=== PATIENT | female | born 1980 | race Caucasian/White ===

== ENCOUNTER 2017-09-05 19:00 | Inpatient (IN) | payer OTHER ==
[2017-09-05] MEDS: DEXTROSE 5%-LACTATED RINGERS 1,000 ML IV SCH (19:45)
[2017-09-05] MEDS ORDERED: DINOPROSTONE 10 MG VAGINAL SUPPOSITORY VG ONE (21:00)
[2017-09-05] MEDS ORDERED: BUTORPHANOL TARTRATE 1 MG/ML VIAL IVPB ONE (21:14)
[2017-09-05] MEDS ORDERED: PROMETHAZINE HCL 25 MG/1 ML VIAL IVPUSH ONE (21:14)
--- NOTE | 2017-09-05 21:21 | HP ---
Past Medical History - Primary Care Physician PCP:: Sarahi Avilez - Admission Chief Complaint: 37yo P0 @ 38.5 wks with generalized edema, significant proteinuria History of Present Illness: 1. Rh negative - s/p Rhogam 2. IVF , donor egg 3. AMA - Materna 21 wnl 4. h/o Hodgkins Lymphoma - s/p Chemo 5. GBS negative 6. Tdap given 7. Anemia 8. Migranes History Source: Patient Limitations to Obtaining History: No Limitations - Past Medical History CLEANING MAID: Yes: Migraine ...: 2 ...Para: 0 ...Spon : 1 ... Weeks Gestation by Dates: 38.5 ...EDC by Sono: 05/02/17 Heme/Onc: Yes: Anemia, Other (Non Hodgkins Lymphoma, s/p Chemo) - Past Surgical History Past Surgical History: Yes: None Hx Myomectomy: No Hx Transabdominal Cerclage: No - Smoking History Smoking history: Never smoked Have you smoked in the past 12 months: No Home Medications - Allergies Allergies/Adverse Reactions: Allergies Allergy/AdvReac Type Severity Reaction Status Date / Time Gadolinium-Containing AdvReac Intermediate Swelling Verified 09/05/17 20:45 Contrast Medi - Home Medications Home Medications: Ambulatory Orders Esomeprazole Magnesium [Nexium 24Hr] 20 mg PO DAILY 09/05/17 Ferrous Sulfate [Iron] 325 mg PO DAILY 09/05/17 95/Iron Fum/Folic/Dha [ + Dha Combo Pack] 1 each PO DAILY 09/05 Family Disease History - Family Disease History Family Disease History: Other: Mother (Acute myeloid leukemia) Review of Systems - Review of Systems Constitutional: reports: No Symptoms Eyes: reports: No Symptoms HENT: reports: No Symptoms Neck: reports: No Symptoms Cardiovascular: reports: No Symptoms Respiratory: reports: No Symptoms Gastrointestinal: reports: No Symptoms Genitourinary: reports: No Symptoms Breasts: reports: No Symptoms Reported Musculoskeletal: reports: No Symptoms Integumentary: reports: No Symptoms Neurological: reports: No Symptoms Endocrine: reports: No Symptoms Hematology/Lymphatic: reports: No Symptoms Psychiatric: reports: No Symptoms Pain Intensity: 0 Physical Exam - Maternity Constitutional: Yes: Well Nourished, No Distress, Calm Eyes: Yes: WNL, Conjunctiva Clear, EOM Intact HENT: Yes: WNL, Atraumatic, Normocephalic Neck: Yes: WNL, Supple, Trachea Midline Cardiovascular: Yes: WNL, Regular Rate and Rhythm Lungs: Clear to auscultation Breast(s): Yes: WNL - Abdominal Exam/OB Fundal Height: 38 Number of Fetuses: Single Presentation: Vertex Contractions: No Heart Rate (range): 145 Heart Rate Location: Midline Category: I Accelerations: Uniform Decelerations: None - Vaginal Exam/OB Vaginal Bleediing: No Speculum Exam: No Dilatation (cm): 2 Effacement (%): 50 Amniotic Membrane Status: Intact Presentation: Vertex/Position Station: -2 - Physical Exam Musculoskeletal: Yes: WNL Extremities: Yes: WNL Edema: Yes Edema: LUE: Trace, RUE: Trace, LLE: 1+, RLE: 1+ Integumentary: Yes: WNL ...Motor Strength: WNL Psychiatric: Yes: WNL, Alert, Oriented Assessment/Plan 37yo P0 @ 38.5wks with edema, CHANEY, Proteinuria Admit to L&D for IOL Case d/w Dr. Dawson [facility]
[2017-09-05 21:49] LABS: BASO % 0.1 % (0-2.0); EOS % 0.2 % (0-4.5); HEMATOCRIT 34.6 % (32.4-45.2); HEMOGLOBIN 11.5 GM/dL (10.7-15.3); LYMPH % 16.8 % (8-40); MCH 31.2 pg (25.7-33.7); MCHC 33.3 g/dl (32.0-36.0); MEAN CELL VOLUME 93.7 fl (80-96); MEAN PLT VOLUME 9.8 fl (7.5-11.1); MONO % 7.7 % (3.8-10.2); NEUT % 75.2 % (42.8-82.8); PLATELET COUNT 191 K/MM3 (134-434); RBC 3.69 M/mm3 (3.60-5.2); RDW 14.8 % (11.6-15.6); WHITE BLOOD COUNT 10.2 K/mm3 (4.0-10.0)
[2017-09-05 21:51] LABS: RETICULOCYTES 1.9 % (0.5-1.5)
[2017-09-05 22:02] LABS: INR 0.89 (0.82-1.09); PROTHROMBIN TIME (PATIENT) 10.1 SEC (9.7-13.0)
[2017-09-05 22:15] LABS: ANION GAP 9 (8-16); BLOOD UREA NITROGEN 8 mg/dL (7-18); CALCIUM 8.5 mg/dL (8.5-10.1); CHLORIDE 107 mmol/L (98-107); CO2 25 mmol/L (21-32); CREATININE 0.6 mg/dL (0.55-1.02); GLUCOSE,RANDOM 68 mg/dL (74-106); POTASSIUM 3.8 mmol/L (3.5-5.1); SGOT/AST 18 U/L (15-37); SODIUM 141 mmol/L (136-145); URIC ACID 3.7 mg/dL (2.6-7.2)
[2017-09-05 22:25] LABS: GAMMA GLUTAMYL TRANSPEPTIDASE < 3 U/L (5-85)
[2017-09-06 00:29] VITALS: BMI 28.4
[2017-09-06] MEDS: ELECTROLYTE-148 SOLN 1,000 ML IV SCH ×2 (06:40→23:30)
--- NOTE | 2017-09-06 10:54 | PN ---
Progress Note, Labor Vaginal Exam #1 Labor Exam Date: 09/06/17 Labor Exam Time: 10:45 Heart Rate (range): 145 Dilatation: 2 Effacement (%): 75 Amniotic Membrane Status: Intact Presentation: Vertex/Position Station: -3
[2017-09-06] MEDS ORDERED: OXYTOCIN 30 UNITS in 0.9% NS 30 UNIT/500 ML INFUS.BAG IVPB ONE ×2 (10:56→23:31)
[2017-09-06] MEDS ORDERED: OXYTOCIN 30 UNITS in 0.9% NS 30 UNIT/500 ML INFUS.BAG IVPB SCH (11:00)
[2017-09-06] MEDS ORDERED: PROMETHAZINE HCL 25 MG/1 ML VIAL IVPB ONE (11:30)
[2017-09-06] MEDS ORDERED: BUTORPHANOL TARTRATE 1 MG/ML VIAL IVPB ONE (11:30)
[2017-09-06] MEDS: DEXTROSE 5%-LACTATED RINGERS 1,000 ML IV SCH (11:44)
[2017-09-06] MEDS ORDERED: TUBERCULIN PPD 5 TU/0.1ML SYRINGE (IN PATIENT USE ONLY) ID ONE (12:00)
[2017-09-06] MEDS ORDERED: BUTORPHANOL TARTRATE 1 MG/ML VIAL ONE ×2 (15:05)
[2017-09-06] MEDS ORDERED: PROMETHAZINE HCL 25 MG/1 ML VIAL ONE (15:06)
[2017-09-06] MEDS ORDERED: FENTANYL/BUPIVACAINE/NS/PF - PCEA - 50 ML DISP.SYRIN EP ONE (23:37)
[2017-09-07] MEDS: FENTANYL/BUPIVACAINE/NS/PF - PCEA - 50 ML DISP.SYRIN EP SCH ×2 (00:05→00:50)
[2017-09-07] MEDS ORDERED: NALOXONE HCL 0.4 MG/ML VIAL IVPUSH PRN (00:21)
[2017-09-07] MEDS: DEXTROSE 5%-LACTATED RINGERS 1,000 ML IV SCH (01:45)
[2017-09-07] MEDS ORDERED: FENTANYL/BUPIVACAINE/NS/PF - PCEA - 50 ML DISP.SYRIN EP ONE (02:57)
[2017-09-07] MEDS ORDERED: ACETAMINOPHEN 325 MG TABLET (FP) ONE (03:21)
[2017-09-07] MEDS ORDERED: AMPICILLIN NA/SULBACTAM NA 1.5 GM in SODIUM CHLORIDE 100 ML IVPB SCH (03:30)
[2017-09-07] MEDS ORDERED: ACETAMINOPHEN 325 MG TABLET (FP) PO ONE (03:30)
[2017-09-07] MEDS ORDERED: ACETAMINOPHEN INJECTION 100 ML IVPB ONE (04:36)
[2017-09-07] MEDS ORDERED: LIDOCAINE HCL 1% PRESERVATIVE FREE - 30ML VIAL ONE (04:39)
[2017-09-07] MEDS ORDERED: OXYTOCIN 20 UNITS in 0.9% NS 20 UNIT/1,000 ML INFUS.BAG IV ONE ×2 (04:40→07:04)
--- NOTE | 2017-09-07 06:52 | PN ---
Delivery - Delivery Vaginal Delivery: Vacuum Extraction Type of Anesthesia: Local, Epidural Episiotomy/Laceration: Midline, 2nd degree EBL (cc): 500 Delivery, Single - Stages of Labor Date 1st Stage Initiatied: 09/06/17 Time 1st Stage Initiated: 16:00 Date 2nd Stage Initiated: 09/07/17 Time 2nd Stage Initiated: 04:40 Date of Delivery: 09/07/17 Time of Delivery: 05:47 Time Placenta Delivered: 06:05 - Condition of Motion Designer/Wellness Manager Present: Yes Name: Immanuel Kent Infant Gender: Male Weight: 8 lb 13 oz Position: OA Total Hours ROM (Hrs/Mins): 6h 50m - 1 Minute Total Score: 9 5 Minutes Total Score: 9 - Feeding Plan Initial Plan: Exclusive throughout hospitalization Remarks - Remarks Remarks: Poor maternal effort No caput no molding head was at +2 station Vaccuum applied to the occiput total of 2 applications, 1 pop off shoulders delivered without difficulty Awaiting pediatritians in the room
[2017-09-07] MEDS ORDERED: BENZOCAINE 28 GM HEMORRHOIDAL OINTMENT TP PRN (06:57)
[2017-09-07] MEDS ORDERED: BENZOCAINE 20% 57 GM BOTTLE TP PRN (06:57)
[2017-09-07] MEDS ORDERED: METHYLERGONOVINE MALEATE 0.2 MG/1 ML AMP IM PRN (06:57)
[2017-09-07] MEDS ORDERED: WITCH HAZEL 50% (TUCKS) 40 PAD/JAR PAD TP PRN (06:57)
[2017-09-07] MEDS ORDERED: BISACODYL 10 MG SUPP.RECT RC PRN (06:57)
[2017-09-07] MEDS ORDERED: D5W-LR W/ 20 UNITS OXYTOCIN 20 UNIT/1,000 ML INFUS.BAG IV SCH (07:00)
[2017-09-07] MEDS: IBUPROFEN 600 MG TABLET (FP) PO PRN ×4 (07:00→21:29)
[2017-09-07] MEDS: AMPICILLIN NA/SULBACTAM NA 1.5 GM in SODIUM CHLORIDE 100 ML IVPB SCH ×3 (09:13→21:32)
[2017-09-07] MEDS: PRENATAL VITAMINS W/ FOLIC ACID TABLET (FP) PO SCH (10:12)
[2017-09-07] MEDS: FERROUS SO4 325 MG TABLET (FP) PO SCH ×2 (10:12→18:08)
[2017-09-07] MEDS: ACETAMINOPHEN 325 MG TABLET (FP) PO PRN ×3 (10:13→21:29)
[2017-09-07] MEDS ORDERED: LIDOCAINE HCL 2% JELLY (5 ML/TUBE) TP PRN (12:21)
[2017-09-07] MEDS: PANTOPRAZOLE 40 MG TABLET (FP) PO SCH (13:41)
--- NOTE | 2017-09-08 00:48 | PN ---
Post Progress Note - Subjective Subjective: Patient without acute complaints. Reports tolerating oral intake without nausea or vomiting. Ambulating without dizziness. Denies fevers or chills. Pain well controlled with oral pain medication. without difficulty. Passing flatus. Post Day: 1 Type of Delivery: Vacuum Assist Vag Del Vital Signs: Vital Signs Temperature 98.7 F 09/07/17 22:00 Pulse Rate 75 09/07/17 22:00 Respiratory Rate 18 09/07/17 22:00 Blood Pressure 124/78 09/07/17 22:00 O2 Sat by Pulse Oximetry (%) 99 09/07/17 08:20 Breast Exam: Yes: Soft Uterus: Yes: Fundus Firm, Fundus below umbilicus Abdomen/GI: Yes: Abdomen soft Lochia, amount: Small Extremities: No: Edema Activity: Ambulating - Labs Labs: CBC WBC 10.2 K/mm3 (4.0-10.0) H 09/05/17 21:00 RBC 3.69 M/mm3 (3.60-5.2) 09/05/17 21:00 Hgb 11.5 GM/dL (10.7-15.3) 09/05/17 21:00 Hct 34.6 % (32.4-45.2) 09/05/17 21:00 MCV 93.7 fl (80-96) 09/05/17 21:00 MCH 31.2 pg (25.7-33.7) 09/05/17 21:00 MCHC 33.3 g/dl (32.0-36.0) 09/05/17 21:00 RDW 14.8 % (11.6-15.6) 09/05/17 21:00 Plt Count 193 K/MM3 (134-434) 09/05/17 21:00 MPV 9.8 fl (7.5-11.1) 09/05/17 21:00 Absolute Neuts (auto) 7.6 # 09/05/17 21:00 Neutrophils % 75.2 % (42.8-82.8) 09/05/17 21:00 Lymphocytes % 16.8 % (8-40) 09/05/17 21:00 Monocytes % 7.7 % (3.8-10.2) 09/05/17 21:00 Eosinophils % 0.2 % (0-4.5) 09/05/17 21:00 Basophils % 0.1 % (0-2.0) 09/05/17 21:00 Nucleated RBC % 0 % (0-0) 09/05/17 21:00 Retic Count 1.90 % (0.5-1.5) H 09/05/17 21:00 Haptoglobin 93 mg/dL (34-200) 09/05/17 21:00 Assessment/Plan 37 yo PPD # 1 s/p VAVD, afebrile, vital signs stable, doing well 1. Continue routine care. 2. Follow up AM CBC 3. Rh negative, Rhogam as per protocol. 4. Encourage ambulation 5. Continue oral pain medication 6. Anticipate discharge home day #2
[2017-09-08] MEDS: IBUPROFEN 600 MG TABLET (FP) PO PRN ×3 (02:49→21:44)
[2017-09-08] MEDS: ACETAMINOPHEN 325 MG TABLET (FP) PO PRN ×3 (02:49→21:43)
[2017-09-08] MEDS: AMPICILLIN NA/SULBACTAM NA 1.5 GM in SODIUM CHLORIDE 100 ML IVPB SCH (02:49)
[2017-09-08] MEDS: FENTANYL/BUPIVACAINE/NS/PF - PCEA - 50 ML DISP.SYRIN EP SCH (04:09)
[2017-09-08 08:11] LABS: BASO % 0.1 % (0-2.0); HEMATOCRIT 24.8 % (32.4-45.2); HEMOGLOBIN 8.3 GM/dL (10.7-15.3); LYMPH % 16.7 % (8-40); MCH 31.6 pg (25.7-33.7); MCHC 33.6 g/dl (32.0-36.0); MEAN CELL VOLUME 93.9 fl (80-96); MEAN PLT VOLUME 9.6 fl (7.5-11.1); MONO % 6.1 % (3.8-10.2); NEUT % 76.1 % (42.8-82.8); PLATELET COUNT 141 K/MM3 (134-434); RBC 2.64 M/mm3 (3.60-5.2); WHITE BLOOD COUNT 12.3 K/mm3 (4.0-10.0)
[2017-09-08] MEDS: FERROUS SO4 325 MG TABLET (FP) PO SCH ×3 (08:16→17:49)
[2017-09-08] MEDS: DOCUSATE SODIUM 100 MG CAPSULE (FP) PO PRN ×2 (09:55→21:42)
[2017-09-08] MEDS: PRENATAL VITAMINS W/ FOLIC ACID TABLET (FP) PO SCH (09:56)
[2017-09-08] MEDS: PANTOPRAZOLE 40 MG TABLET (FP) PO SCH (09:56)
[2017-09-08] MEDS ORDERED: SENNOSIDES/DOCUSATE COMBO (SENNA PLUS) TABLET (UD) PO PRN (22:00)
--- NOTE | 2017-09-09 08:34 | DS ---
Physical Exam-RAILROAD REPAIRER Vital Signs: Vital Signs Temperature 97.9 F 09/08/17 21:49 Pulse Rate 102 H 09/08/17 21:49 Respiratory Rate 20 09/08/17 21:49 Blood Pressure 129/80 09/08/17 21:49 O2 Sat by Pulse Oximetry (%) 99 09/07/17 08:20 Constitutional: Yes: Well Nourished, No Distress, Calm Eyes: Yes: WNL, Conjunctiva Clear, EOM Intact HENT: Yes: WNL, Atraumatic, Normocephalic Neck: Yes: WNL, Supple, Trachea Midline Cardiovascular: Yes: WNL, Regular Rate and Rhythm Respiratory: Yes: WNL, Regular, CTA Bilaterally Gastrointestinal: Yes: WNL ...Rectal Exam: Yes: WNL Renal/: Yes: WNL External Genitalia: Yes: Normal ....Post : Yes: Uterus firm, Uterus non-tender, Slight lochia rubra Breast(s): Yes: WNL Musculoskeletal: Yes: WNL Extremities: Yes: WNL Edema: No Integumentary: Yes: WNL Neurological: Yes: WNL, Alert, Oriented ...Motor Strength: WNL Psychiatric: Yes: WNL, Alert, Oriented Labs: CBC, BMP 09/08/17 06:15 09/05/17 21:00 Delivery - Delivery Vaginal Delivery: Vacuum Extraction Type of Anesthesia: Local, Epidural Episiotomy/Laceration: Midline, 2nd degree EBL (cc): 500 Delivery, Single - Stages of Labor Date 1st Stage Initiatied: 09/06/17 Time 1st Stage Initiated: 16:00 Date 2nd Stage Initiated: 09/07/17 Time 2nd Stage Initiated: 04:40 Date of Delivery: 09/07/17 Time of Delivery: 05:47 Time Placenta Delivered: 06:05 Placenta: Yes: Spontaneous - Condition of Billet Worker/Single Ending Machine Operator Present: Yes Name: Immanuel Kent Infant Gender: Male Weight: 8 lb 13 oz Position: OA Total Hours ROM (Hrs/Mins): 6h 50m - 1 Minute Total Score: 9 5 Minutes Total Score: 9 - [place] Feeding Plan Initial Plan: Exclusive throughout hospitalization Discharge Summary Reason For Visit: LABOR ADMIT Procedures: Principal: vaccum assiated vaginal delivery Hospital Course: no complication - Instructions Diet, Activity, Other Instructions: regular diet, no intercourse, follow up office 4 weeks - Home Medications Comprehensive Discharge Medication List: Ambulatory Orders Esomeprazole Magnesium [Nexium 24Hr] 20 mg PO DAILY 09/05/17 Ferrous Sulfate [Iron] 325 mg PO DAILY 09/05/17 95/Iron Fum/Folic/Dha [ + Dha Combo Pack] 1 each PO DAILY 09/05 Ibuprofen [Motrin -] 600 mg PO QID #28 tablet 09/09/17
[2017-09-09] MEDS: FERROUS SO4 325 MG TABLET (FP) PO SCH (10:23)
[2017-09-09] MEDS: PRENATAL VITAMINS W/ FOLIC ACID TABLET (FP) PO SCH (10:23)
[2017-09-09 11:06] VITALS: BP 149/88; PULSE 109; TEMP 98
[2017-09-09] MEDS: PANTOPRAZOLE 40 MG TABLET (FP) PO SCH (11:36)
== END 2017-09-09 14:00 | disposition home or self-care (01) | DRG 775 ==
LOC: JDEL 19:00 → JLDR 19:01 → EDLOC 19:01 → UNDOADMIN 19:01 → J3W 09-07 08:25
PROVIDERS: ADMIT Obstetrics & Gynecology; ATTEND Obstetrics & Gynecology
PROC: 0KQM0ZZ Repair Perineum Muscle, Open Approach (ICD-10-PCS; principal; 2017-09-07)
PROC: 10D07Z6 Extraction of Products of Conception, Vacuum, Via Natural or Artificial Opening (ICD-10-PCS; 2017-09-07)
PROC: 10E0XZZ Delivery of Products of Conception, External Approach (ICD-10-PCS; 2017-09-07)
DX: O70.1 Second degree perineal laceration during delivery (principal); Z37.0 Single live birth; O99.02 Anemia complicating childbirth; G43.909 Migraine, unspecified, not intractable, without status migrainosus; O66.5 Attempted application of vacuum extractor and forceps; Z3A.38 38 weeks gestation of pregnancy; Z85.72 Personal history of non-Hodgkin lymphomas
CPT/HCPCS: 36415; 59409; 80048; 82977; 83010; 84450; 84460; 84550; 85025; 85032; 85044; 85461; 85610; 85730; 86593; 86850; 86870; 86900; 86901; 86902; 86999; J0131

== ENCOUNTER 2020-04-08 08:49 | Inpatient (IN) | payer OTHER ==
[2020-04-08 10:34] VITALS: BMI 26.6
[2020-04-08] MEDS: DEXTROSE 5%-LACTATED RINGERS 1,000 ML IV SCH ×2 (11:00→22:26)
[2020-04-08] MEDS ORDERED: ELECTROLYTE-148 SOLN 1,000 ML IV SCH (11:45)
[2020-04-08] MEDS ORDERED: PROMETHAZINE HCL 25 MG/1 ML VIAL IVPB ONE (11:45)
[2020-04-08] MEDS ORDERED: BUTORPHANOL TARTRATE 2 MG/ML VIAL IVPB ONE (11:45)
[2020-04-08] MEDS ORDERED: OXYTOCIN 30 UNITS in 0.9% NS 30 UNIT/500 ML INFUS.BAG IVPB SCH (12:00)
[2020-04-08] MEDS ORDERED: PCA PUMP NR ONE (15:15)
[2020-04-08] MEDS ORDERED: FENTANYL/BUPIVACAINE/NS/PF - PCEA - 50 ML DISP.SYRIN EP ONE ×2 (15:15→19:30)
[2020-04-08] MEDS ORDERED: BUPIVACAINE HCL/PF 0.25% (2.5MG/ML) 10 ML VIAL ONE (15:27)
[2020-04-08] MEDS ORDERED: NALOXONE HCL 0.4 MG/ML VIAL IVPUSH PRN (15:31)
[2020-04-08] MEDS ORDERED: FENTANYL/BUPIVACAINE/NS/PF - PCEA - 50 ML DISP.SYRIN EP SCH (15:45)
[2020-04-08] MEDS ORDERED: OXYTOCIN 20 UNITS in 0.9% NS 20 UNIT/1,000 ML INFUS.BAG IV ONE (17:42)
[2020-04-08] MEDS ORDERED: ACETAMINOPHEN INJECTION 100 ML IVPB ONE (18:40)
[2020-04-08 19:02] LABS: CORD BASE EXCESS -8.9 mmol/L (0-2); CORD HCO3 18.7 mmHg (20-29); CORD PCO2 46.2 mmHg (30-78); CORD pH 7.225 (7.14-7.44)
[2020-04-08] MEDS ORDERED: WITCH HAZEL 50% (TUCKS) 40 PAD/JAR PAD TP PRN (20:00)
[2020-04-08] MEDS ORDERED: BISACODYL 10 MG SUPP.RECT RC PRN (20:00)
[2020-04-08] MEDS ORDERED: BENZOCAINE 20% 57 GM BOTTLE TP PRN (20:00)
[2020-04-08] MEDS ORDERED: ACETAMINOPHEN 325 MG TABLET (FP) PO PRN (20:00)
[2020-04-08] MEDS ORDERED: D5W-LR W/ 20 UNITS OXYTOCIN 1,000 ML IV SCH (20:00)
[2020-04-08] MEDS ORDERED: BENZOCAINE 28 GM HEMORRHOIDAL OINTMENT TP PRN (20:00)
[2020-04-08] MEDS ORDERED: METHYLERGONOVINE MALEATE 0.2 MG/1 ML AMP IM PRN (20:00)
[2020-04-08] MEDS ORDERED: ACETAMINOPHEN 1000 MG/100 ML VIAL (NON FORMULARY) IVPB ONE (20:02)
[2020-04-08] MEDS ORDERED: OXYTOCIN 20 UNITS in 0.9% NS 20 UNIT/1,000 ML INFUS.BAG IV SCH (20:15)
[2020-04-08] MEDS ORDERED: IBUPROFEN 600 MG TABLET (FP) PO ONE (20:20)
[2020-04-08] MEDS ORDERED: CEFAZOLIN 2 GM/D5W 2 GM/50 ML ML IVPB ONE (20:20)
[2020-04-08] MEDS ORDERED: CEFAZOLIN 1 GM/D5W 1 GM/50 ML BAG IVPB ONE (20:30)
[2020-04-08] MEDS: IBUPROFEN 600 MG TABLET (FP) PO PRN (20:40)
[2020-04-09 08:59] LABS: BASO % 0.1 % (0-2.0); EOS % 0.4 % (0-4.5); HEMATOCRIT 28.3 % (32.4-45.2); HEMOGLOBIN 9.2 GM/dL (10.7-15.3); LYMPH % 10.1 % (8-40); MCH 28.8 pg (25.7-33.7); MCHC 32.7 g/dl (32.0-36.0); MEAN CELL VOLUME 87.9 fl (80-96); MEAN PLT VOLUME 9.5 fl (7.5-11.1); MONO % 5.7 % (3.8-10.2); NEUT % 83.7 % (42.8-82.8); PLATELET COUNT 146 K/MM3 (134-434); RBC 3.21 M/mm3 (3.60-5.2); RDW 17.6 % (11.6-15.6); WHITE BLOOD COUNT 12.9 K/mm3 (4.0-10.0)
[2020-04-09] MEDS: FERROUS SO4 325 MG TABLET (FP) PO SCH ×2 (09:36→17:48)
[2020-04-09] MEDS: PRENATAL VITAMINS W/ FOLIC ACID TABLET (FP) PO SCH (09:36)
[2020-04-09] MEDS: IBUPROFEN 600 MG TABLET (FP) PO PRN (14:26)
[2020-04-09] MEDS ORDERED: SENNOSIDES/DOCUSATE COMBO (SENNA PLUS) TABLET (UD) PO PRN (22:00)
[2020-04-10] MEDS ORDERED: RHO(D) IMMUNE GLOBULIN 1,500 UNIT DISP.SYRIN IM ONE (02:12)
[2020-04-10] MEDS: FERROUS SO4 325 MG TABLET (FP) PO SCH (08:53)
[2020-04-10] MEDS: PRENATAL VITAMINS W/ FOLIC ACID TABLET (FP) PO SCH (10:36)
[2020-04-10 13:05] VITALS: BP 120/76; PULSE 90; TEMP 98.5
== END 2020-04-10 14:35 | disposition home or self-care (01) | DRG 807 ==
LOC: JDEL 08:49 → JLDR 09:20 → J3W 21:22
PROVIDERS: ADMIT Obstetrics & Gynecology; ATTEND Obstetrics & Gynecology
PROC: 10E0XZZ Delivery of Products of Conception, External Approach (ICD-10-PCS; principal; 2020-04-08)
PROC: 0W8NXZZ Division of Female Perineum, External Approach (ICD-10-PCS; 2020-04-08)
PROC: 10907ZC Drainage of Amniotic Fluid, Therapeutic from Products of Conception, Via Natural or Artificial Opening (ICD-10-PCS; 2020-04-08)
DX: O32.1XX0 Maternal care for breech presentation, not applicable or unspecified (principal); Z37.0 Single live birth; Z85.72 Personal history of non-Hodgkin lymphomas; Z88.8 Allergy status to other drugs, medicaments and biological substances; O90.81 Anemia of the puerperium; D64.9 Anemia, unspecified; Z3A.38 38 weeks gestation of pregnancy
CPT/HCPCS: 36415; 36600; 59409; 82803; 85025; 85461; 86999; J0131; J1561

== ENCOUNTER 2021-03-31 04:19 | Day surgery (SDC) | payer OTHER ==
[2021-03-27 17:15] VITALS: BMI 22.7
[2021-03-31] MEDS ORDERED: ACETAMINOPHEN INJECTION 100 ML IVPB ONE (07:00)
[2021-03-31] MEDS ORDERED: DEXMEDETOMIDINE HCL 200 MCG/2 ML IVPB ONE (07:00)
[2021-03-31] MEDS ORDERED: PROPOFOL 20 ML ONE ×2 (07:10)
[2021-03-31] MEDS ORDERED: KETAMINE HCL 200 MG/20 ML VIAL ONE (07:11)
[2021-03-31] MEDS ORDERED: MIDAZOLAM HCL 2 MG/2 ML SINGLE DOSE VIAL ONE (07:11)
[2021-03-31] MEDS ORDERED: SUGAMMADEX SODIUM 200 MG/2 ML VIAL ONE (07:14)
[2021-03-31] MEDS ORDERED: ONDANSETRON 4 MG/2 ML VIAL IVPUSH PRN ×2 (07:49→08:57)
[2021-03-31] MEDS ORDERED: oxyCODONE HCL 5 MG TABLET PO PRN (07:49)
[2021-03-31] MEDS ORDERED: IBUPROFEN 600 MG TABLET (FP) PO PRN (07:49)
[2021-03-31] MEDS ORDERED: IBUPROFEN 800 MG/8 ML IJ IVPB PRN (07:49)
[2021-03-31] MEDS ORDERED: ELECTROLYTE-148 SOLN 1,000 ML IV SCH (08:00)
[2021-03-31] MEDS ORDERED: LIDOCAINE HCL 2% JELLY (5 ML/TUBE) ONE (08:20)
[2021-03-31] MEDS ORDERED: LIDOCAINE HCL/PF 2% SDV 5ML VIAL ONE ×2 (08:20→08:24)
[2021-03-31] MEDS ORDERED: ROCURONIUM BROMIDE 100 MG/10 ML VIAL ONE (08:22)
[2021-03-31] MEDS ORDERED: DEXAMETHASONE SOD PHOSPHATE 4 MG/1 ML VIAL IVPUSH ONE (08:58)
[2021-03-31 11:07] VITALS: BP 107/69; PULSE 85; TEMP 97.5
== END 2021-03-31 11:25 | disposition home or self-care (01) ==
LOC: JASU-SURG 04:19
PROVIDERS: ATTEND Obstetrics & Gynecology
PROC: 0UB98ZX Excision of Uterus, Via Natural or Artificial Opening Endoscopic, Diagnostic (ICD-10-PCS; principal; 2021-03-31 07:30)
DX: N93.8 Other specified abnormal uterine and vaginal bleeding (principal); N84.0 Polyp of corpus uteri
CPT/HCPCS: 81025; 88305-TC; 94760

== ENCOUNTER 2023-03-17 11:45 | Inpatient (IN) | payer OTHER ==
[2023-03-17] MEDS ORDERED: ELECTROLYTE-148 SOLN 1,000 ML IV SCH ×2 (12:00→20:00)
[2023-03-17 12:54] LABS: INR 0.97 (0.83-1.09); PROTHROMBIN TIME (PATIENT) 11.2 SEC (9.7-13.0)
[2023-03-17 12:56] LABS: BASO % 0.1 % (0-2.0); EOS % 0.2 % (0-4.5); HEMATOCRIT 35.1 % (32.4-45.2); LYMPH % 15.3 % (8-40); MCH 30.9 pg (25.7-33.7); MCHC 34.1 g/dl (32.0-36.0); MEAN CELL VOLUME 90.5 fl (80-96); MEAN PLT VOLUME 8.8 fl (7.5-11.1); MONO % 6.7 % (3.8-10.2); NEUT % 77.7 % (42.8-82.8); PLATELET COUNT 216 10^3/uL (134-434); RBC 3.87 M/mm3 (3.60-5.2); RDW 19.6 % (11.6-15.6); WHITE BLOOD COUNT 9.4 K/mm3 (4.0-10.0)
[2023-03-17 12:57] LABS: ACTIVATED PTT 25.2 SECONDS (25.2-36.5)
[2023-03-17 13:24] VITALS: BMI 28.4
[2023-03-17 13:29] LABS: POTASSIUM 3.7 mmol/L (3.5-5.1)
[2023-03-17 13:34] LABS: CALCIUM 9.2 mg/dL (8.5-10.1)
[2023-03-17 13:35] LABS: BLOOD UREA NITROGEN 9.9 mg/dL (7-18)
[2023-03-17 13:38] LABS: CREATININE 0.6 mg/dL (0.55-1.3)
[2023-03-17] MEDS ORDERED: FENTANYL/BUPIVACAINE/NS/PF - PCEA - 50 ML DISP.SYRIN EP ONE ×2 (15:28→20:33)
[2023-03-17] MEDS ORDERED: OXYTOCIN 30 UNITS in 0.9% NS 30 UNIT/500 ML INFUS.BAG IVPB SCH (15:30)
[2023-03-17] MEDS ORDERED: NALOXONE HCL 0.4 MG/ML VIAL IVPUSH PRN (15:33)
[2023-03-17] MEDS ORDERED: OXYTOCIN 30 UNITS in 0.9% NS 30 UNIT/500 ML INFUS.BAG IVPB ONE (15:34)
[2023-03-17] MEDS ORDERED: LIDO 2%/EPI 1:200000 PRESRVFRE (20 ML SDVIAL) ONE (15:36)
[2023-03-17] MEDS ORDERED: BUPIVACAINE HCL/PF 0.25% (2.5MG/ML) 10 ML VIAL ONE (15:36)
[2023-03-17] MEDS ORDERED: FENTANYL/BUPIVACAINE/NS/PF - PCEA - 50 ML DISP.SYRIN EP SCH (15:45)
[2023-03-17] MEDS ORDERED: OXYTOCIN 20 UNITS in 0.9% NS 20 UNIT/1,000 ML INFUS.BAG IV ONE (20:40)
[2023-03-17] MEDS ORDERED: LIDOCAINE HCL 1% PRESERVATIVE FREE - 30ML VIAL ONE (20:41)
[2023-03-17 21:45] LABS: CORD HCO3 21.4 mmHg (20-29); CORD PCO2 48.4 mmHg (30-78); CORD pH 7.264 (7.14-7.44)
[2023-03-17 21:50] LABS: CORD BASE EXCESS -4.5 mmol/L (0-2); CORD HCO3 21.2 mmHg (20-29); CORD PCO2 41.3 mmHg (30-78); CORD pH 7.329 (7.14-7.44)
[2023-03-17] MEDS ORDERED: BENZOCAINE 28 GM HEMORRHOIDAL OINTMENT TP PRN (21:54)
[2023-03-17] MEDS ORDERED: WITCH HAZEL 50% (TUCKS) 40 PAD/JAR PAD TP PRN (21:54)
[2023-03-17] MEDS ORDERED: METHYLERGONOVINE MALEATE 0.2 MG/1 ML AMP IM PRN (21:54)
[2023-03-17] MEDS ORDERED: ACETAMINOPHEN 325 MG TABLET (FP) PO PRN (21:54)
[2023-03-17] MEDS ORDERED: BENZOCAINE 20% 57 GM BOTTLE TP PRN (21:54)
[2023-03-17] MEDS ORDERED: BISACODYL 10 MG SUPP.RECT RC PRN (21:54)
[2023-03-17] MEDS ORDERED: OXYTOCIN 20 UNITS in 0.9% NS 20 UNIT/1,000 ML INFUS.BAG IV SCH (22:00)
[2023-03-18] MEDS: IBUPROFEN 600 MG TABLET (FP) PO PRN ×3 (02:39→15:12)
[2023-03-18 07:08] LABS: BASO % 0.3 % (0-2.0); EOS % 0.3 % (0-4.5); HEMATOCRIT 31.8 % (32.4-45.2); HEMOGLOBIN 10.4 GM/dL (10.7-15.3); LYMPH % 11.2 % (8-40); MCH 30.1 pg (25.7-33.7); MCHC 32.8 g/dl (32.0-36.0); MEAN CELL VOLUME 91.7 fl (80-96); MONO % 8.3 % (3.8-10.2); NEUT % 79.9 % (42.8-82.8); PLATELET COUNT 176 10^3/uL (134-434); RBC 3.46 M/mm3 (3.60-5.2); RDW 19.3 % (11.6-15.6)
[2023-03-18 16:48] VITALS: BP 111/67; PULSE 96; RESP 16; TEMP 98
[2023-03-18] MEDS ORDERED: SENNOSIDES/DOCUSATE COMBO (SENNA PLUS) TABLET (UD) PO PRN (22:00)
== END 2023-03-18 17:30 | disposition home or self-care (01) | DRG 807 ==
LOC: JLDR 11:45 → J3W 03-18 00:25
PROVIDERS: ADMIT Obstetrics & Gynecology; ATTEND Obstetrics & Gynecology
PROC: 10E0XZZ Delivery of Products of Conception, External Approach (ICD-10-PCS; principal; 2023-03-18)
PROC: 0KQM0ZZ Repair Perineum Muscle, Open Approach (ICD-10-PCS; 2023-03-18)
PROC: 10907ZC Drainage of Amniotic Fluid, Therapeutic from Products of Conception, Via Natural or Artificial Opening (ICD-10-PCS; 2023-03-18)
DX: O40.3XX0 Polyhydramnios, third trimester, not applicable or unspecified (principal); Z37.0 Single live birth; O24.429 Gestational diabetes mellitus in childbirth, unspecified control; O70.1 Second degree perineal laceration during delivery; Z3A.37 37 weeks gestation of pregnancy; K21.9 Gastro-esophageal reflux disease without esophagitis; Z85.72 Personal history of non-Hodgkin lymphomas; G43.909 Migraine, unspecified, not intractable, without status migrainosus
CPT/HCPCS: 36415; 36600; 80048; 82803; 85025; 85461; 85610; 85730; 86780; 86850; 86870; 86880; 86900; 86901; 86902; 96372; J2790